=== PATIENT | female | born 1955 | race Two or more races ===

== ENCOUNTER 2018-11-04 13:07 | Inpatient (IN) | payer OTHER ==
[~2018-11-04] VITALS: Ht 154.9 cm; Wt 65.8 kg
[2018-11-04] MEDS ORDERED: LANTUS SOL100 UNIT/1 (13:27)
[2018-11-04] MEDS ORDERED: RESTORA CAPSUL1 EACH (13:27)
[2018-11-04] MEDS ORDERED: FORTAMET1000 MG (13:27)
[2018-11-04] MEDS ORDERED: CALAN80 MG PO (13:28)
[2018-11-04] MEDS ORDERED: XANAX XR0.5 MG (13:29)
[2018-11-04] MEDS ORDERED: EFFEXOR XR75 MG (13:29)
[2018-11-04] MEDS ORDERED: ACCUPRIL10 MG PO (13:29)
[2018-11-04] MEDS ORDERED: PROGESTERONE100 MG (13:32)
[2018-11-04] MEDS ORDERED: ESTRACE2 MG PO (13:32)
[2018-11-04] MEDS ORDERED: PRILOSEC10 MG (13:32)
[2018-11-04] MEDS ORDERED: ZANTAC150 MG (13:32)
[2018-11-04] MEDS ORDERED: PRILOSEC10 MG PO (13:33)
[2018-11-04] MEDS ORDERED: METFORMIN HCL1000 M1 (13:33)
[2018-11-04] MEDS ORDERED: ESTAZOLAM2 MG (13:34)
[2018-11-04] MEDS ORDERED: TRAZODONE HCL100 MG (13:35)
[2018-11-04] MEDS ORDERED: LIPITOR20 MG (13:36)
[2018-11-04] MEDS ORDERED: SYNTHROID112 MCG (13:36)
[2018-11-04] MEDS ORDERED: SINGULAIR10 MG (13:36)
[2018-11-04] MEDS ORDERED: BREO ELLIPTA 21 EACH (13:38)
[2018-11-04] MEDS ORDERED: GLIMEPIRIDE4 MG (13:38)
--- NOTE | 2018-11-04 13:41 | NUR ---
PACIENTE REFIERE HACE 3 GARCIA MEAGHAN RABDOMINAL
--- NOTE | 2018-11-04 16:53 | NUR ---
SE EDUCA A PTE SOBRE [place] MEDICO ESTA REIFERE ENTENDER. SE ADMINISTRAN MEDICAMENTOS LOS CUALES TOL[place] Y SE PALOMA MUESTRAS DE LABORAOTORIO UTILIZANDO MEDIDAS ASEPTICAS. SE NOTIFICA ESTUDIO DE CT PO PENDIENTE A REALIZAR.
== END 2018-11-10 12:06 | disposition home or self-care (01) | DRG 391 ==
LOC: ER 13:07 → SURG 21:52 → SEC-K 21:52 → SURG 11-05 00:06
PROVIDERS: ADMIT Colon & Rectal Surgery
PROC: BW21ZZZ Computerized Tomography (CT Scan) of Abdomen and Pelvis (ICD-10-PCS; principal; 2018-11-04)
DX: K57.32 Diverticulitis of large intestine without perforation or abscess without bleeding (principal); M31.1 Thrombotic microangiopathy; E11.9 Type 2 diabetes mellitus without complications; I10 Essential (primary) hypertension; E03.8 Other specified hypothyroidism; E78.00 Pure hypercholesterolemia, unspecified

== ENCOUNTER 2018-11-27 09:11 | Day surgery (SDC) | payer OTHER ==
[~2018-11-27 09:11] MED LIST: ACCUPRIL10 MG PO; BREO ELLIPTA 21 EACH; CALAN80 MG PO; EFFEXOR XR75 MG; ESTAZOLAM2 MG; ESTRACE2 MG PO; FORTAMET1000 MG; GLIMEPIRIDE4 MG; LANTUS SOL100 UNIT/1; LIPITOR20 MG; METFORMIN HCL1000 M1; PRILOSEC10 MG; PRILOSEC10 MG PO; PROGESTERONE100 MG; RESTORA CAPSUL1 EACH; SINGULAIR10 MG; SYNTHROID112 MCG; TRAZODONE HCL100 MG; XANAX XR0.5 MG; ZANTAC150 MG
== END 2018-11-27 16:20 | disposition home or self-care (01) ==
LOC: AMB-ENDOS 09:11
DX: K57.30 Diverticulosis of large intestine without perforation or abscess without bleeding (principal); K64.1 Second degree hemorrhoids; K92.1 Melena

== ENCOUNTER 2019-02-26 17:27 | Emergency (ER) | payer OTHER ==
[~2019-02-26] VITALS: Ht 154.9 cm; Wt 61.2 kg
== END 2019-02-26 23:28 | disposition home or self-care (01) ==
LOC: ER 17:27
DX: N30.80 Other cystitis without hematuria (principal)

== ENCOUNTER 2019-05-06 15:43 | Inpatient (IN) | payer OTHER ==
[~2019-05-06] VITALS: Ht 154.9 cm; Wt 67.1 kg
[~2019-05-06 15:43] MED LIST changes: -GLIMEPIRIDE4 MG; +GLIMEPIRIDE4 MG PO
[2019-05-19] MEDS ORDERED: COLLAGEN PO (10:42)
[2019-05-19] MEDS ORDERED: CHLORDIAZEPO-A1 EACH PO (10:44)
[2019-05-19] MEDS ORDERED: MIRTAZAPINE15 M1 PO (10:44)
== END 2019-05-28 17:00 | disposition home or self-care (01) | DRG 331 ==
LOC: ADM 05-19 09:15 → EDSTATUS 05-19 09:15 → SURH 05-26 08:00 → O/R 05-26 08:00 → EDBD 05-26 09:15 → SURH 05-26 09:15
PROVIDERS: ADMIT Colon & Rectal Surgery
PROC: 0DJD8ZZ Inspection of Lower Intestinal Tract, Via Natural or Artificial Opening Endoscopic (ICD-10-PCS; 2019-05-26)
PROC: 3E0F7GC Introduction of Other Therapeutic Substance into Respiratory Tract, Via Natural or Artificial Opening (ICD-10-PCS; 2019-05-26)
PROC: 0DTN4ZZ Resection of Sigmoid Colon, Percutaneous Endoscopic Approach (ICD-10-PCS; principal; 2019-05-26 10:30)
DX: K57.20 Diverticulitis of large intestine with perforation and abscess without bleeding (principal); K66.0 Peritoneal adhesions (postprocedural) (postinfection); E11.9 Type 2 diabetes mellitus without complications; E78.00 Pure hypercholesterolemia, unspecified; J45.20 Mild intermittent asthma, uncomplicated; F41.8 Other specified anxiety disorders; F32.9 Major depressive disorder, single episode, unspecified